=== PATIENT | male | born 1985 | race Caucasian/White ===

== ENCOUNTER 2017-10-27 17:05 | Emergency (ER) | payer SELFPAY ==
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
[2017-10-27] MEDS ORDERED: Clindamycin 900 MG IVPREMIX(* 900 MG/50 ML SDV IV ONE (18:25)
[2017-10-27 18:35] LABS: ABS Basophils 0.1 10^3/ul (0-0.2); ABS Eosinophils 0.1 10^3/ul (0-0.6); ABS Lymphocytes 1.3 10^3/ul (1.0-4.8); ABS Monocytes 0.9 10^3/ul (0-0.8); ABS Nucleated RBC 0 10^3/ul; Eosinophil % 0.6 % (0-6); Hematocrit 47 % (42-52); Hemoglobin 15.6 g/dl (14.0-18.0); Lymphocyte % 7.3 % (25-47); Mean Corpuscular HGB Conc 33 g/dl (31-36); Mean Corpuscular Hemoglobin 31 pg (27-31); Mean Corpuscular Volume 92 fL (80-94); Mean Platelet Volume 7.7 um3 (7.4-10.4); Nucleated Red Blood Cells % 0.1; Platelet Count 403 10^3/ul (150-450); Red Blood Count 5.09 10^6/ul (4.00-5.40); Red Cell Distribution Width 14 % (10.5-15); White Blood Count 17.4 10^3/ul (3.5-10.8)
[2017-10-27 18:58] LABS: EGFR Non-African American 149.4 (>60)
[2017-10-27 19:02] LABS: Urine Appearance Clear; Urine Blood Negative (Negative); Urine Color Colorless; Urine Ketones Negative (Negative); Urine Protein Negative (Negative); Urine Urobilinogen Negative (Negative)
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
[2017-10-28 03:38] VITALS: BP 000/00
--- NOTE | 2017-10-28 07:06 | RAD ---
INDICATION: Right great toe infection. TECHNIQUE: 3 views of the right foot were obtained. FINDINGS: There is diffuse soft tissue swelling throughout the foot. There is bandage material on the right great toe. No erosive change or periosteal reaction is seen. IMPRESSION: NO SPECIFIC EVIDENCE FOR OSTEOMYELITIS. IF THERE IS A HIGH CLINICAL INDEX OF SUSPICION FOR OSTEOMYELITIS CONSIDER AN MRI WITHOUT CONTRAST OR A THREE-PHASE BONE SCAN. R1
== END 2017-10-28 03:37 | disposition home or self-care (01) ==
LOC: ED 17:05
DX: R45.851 Suicidal ideations (principal); L08.9 Local infection of the skin and subcutaneous tissue, unspecified; Z72.0 Tobacco use; Z86.73 Personal history of transient ischemic attack (TIA), and cerebral infarction without residual deficits; F32.9 Major depressive disorder, single episode, unspecified
CPT/HCPCS: 36415; 80053; 80307; 80320; 80329; 81003; 83605; 84443; 85025; 86140; 87040; 96374; 99285; G0480